=== PATIENT | male | born 1980 | race Caucasian/White ===

== ENCOUNTER 2017-09-28 21:24 | Emergency (ER) | payer SELFPAY ==
--- NOTE | 2017-09-28 22:57 | ER ---
Nurse's Notes [facility] Name: Charles Eden Age: 37 yrs Sex: Male : 1980 Arrival Date: 09/28/2017 Time: 21:27 Bed 3 Private MD: Diagnosis: on arrival. S/P Hanging Presentation: 09/28 21:23 Presenting complaint: EMS states: that pt and were arguing and that pt was found fc in the front yard hanging from tree. Pt was cut down by family per PD. CPR started by PD at 2044. Upon EMS arrival at 2045 pt was Asystole. Transition of care: patient was not received from another setting of care. Onset of symptoms was September 28, 2017 at 20:45. Risk Assessment: Do you want to hurt yourself or someone else? Other: pt was found hanging. Initial Sepsis Screen: Does the patient meet any 2 criteria? No. Patient's initial sepsis screen is negative. Does the patient have a suspected source of infection? No. Patient's initial sepsis screen is negative. Care prior to arrival: Oral intubation, CPR via thumper performed by EMS and is still in progress Placed on backboard. Medication(s) given: EPI x 5, NaBicarb x 2 IV initiated. I/O to left lower leg ETT 7.5. 21:23 Method Of Arrival: EMS: [facility] 21:23 Acuity: SHOLA 1 21:23 Mechanism of Injury: Hanging by unknown for approximately 10 minutes. Hanging details: fc pt found hanging in tree in the front yard by family. Cut down prior to EMS arrival. Trauma event details: Injury occurred in the [facility], Injury occurred: at home. Injury occurred: September 28, 2017. Trauma Activation: Alert Physician: ED Physician; Name: Ant; Notified At: 21:20; Arrived At: 21:23 Physician: General Surgeon; Name: ; Notified At: 21:20; Arrived At: Physician: Radiology; Name: Regi Sainz; Notified At: 21:20; Arrived At: 21:23 Physician: Respiratory; Name: Francis; Notified At: 21:20; Arrived At: 21:23 Physician: Danette; Name: ; Notified At: 21:20; Arrived At: Historical: - Allergies: 21:56 Unable to obtain; fc - Home Meds: 21:56 Unable to obtain [Active]; fc - PMHx: 21:56 Unable to obtain; fc - PSHx: 21:56 Unable to obtain; fc - Immunization history:: Last tetanus immunization: unknown. - Social history:: Smoking status: unknown. - Ebola Screening: : Unable to complete screening because patient is unresponsive, patient is intubated. Screenin:23 Abuse screen: Denies threats or abuse. Nutritional screening: No deficits noted. fc Tuberculosis screening: No symptoms or risk factors identified. Assessment: 21:45 General: Appears unresponsive, ligature delgado to neck, pt blue in color upon arrival to [facility] ER. pt with IO placed via EMS to . 22:04 Pain: Unable to use pain scale. Patient is unresponsive. Neuro: Level of Consciousness ak1 is unresponsive, Pupils are fixed, dilated. Cardiovascular: Rhythm is asystole. Respiratory: Airway pt intubated by EMS Respiratory effort is pt bagged by EMS. no spontaneous respirations. Sputum is pt with blood in mouth and in ET tube visible. RT suctioned when pt arrived to ER3. EENT: Ear canal w/ bleeding noted from right ear. Derm: Skin is mottled, Skin temperature is warm molding to patients face, neck, chest, bilateral arms, back and down left leg. pt defecated on himself KEY PUNCH OPERATOR. Musculoskeletal:. 23:10 Reassessment: [facility] transmission worker at bedside and asked that the tele monitor ak1 and fluids. . 23:12 Reassessment: [facility] contacted at [phone] [phone]. ak1 09/29 00:32 Reassessment: pt picked up by [facility] to be taken to medical stenographer per ak1 Judge Butler. Vital Signs: 09/28 21:23 Pulse 0; Resp 0; Temp 99.1; Weight 127.01 kg (R); Height 6 ft. 0 in. (182.88 cm) (R); fc 21:23 Body Mass Index 37.97 (127.01 kg, 182.88 cm) fc 21:23 pt unresponsive and CPR in progress fc [place] Coma Score: 21:23 Eye Response: none(1). Verbal Response: none(1). Motor Response: none(1). Total: 3. fc Trauma Score (Adult): 21:23 Eye Response: none(0); Verbal Response: none(0); Motor Response: none(0); Systolic BP: fc None(0); Respiratory Rate: None(0); Geeta Score: 3; Trauma Score: 0 ED Course: 21:23 Arm band placed on Patient placed in an exam room, on a stretcher, on oxygen, on fc telemetry monitor, on pulse oximetry. 21:23 Patient has correct armband on for positive identification. school lunch monitor on. Pulse fc ox on. NIBP on. 21:27 Patient arrived in ED. ak1 21:34 Ang Cain MD is Attending Physician. pkl 21:55 Triage completed. fc 22:04 deputy probation officer at the bedside. ak1 22:04 compressions done by ER team. Maintain EMS IV. IO to left lower leg place by EMS KEY PUNCH OPERATOR.. ak1 22:55 Ang Cain MD is Pronouncing Provider. pkl 22:58 No Charles, JENNIFER is Primary Nurse. ak1 Administered Medications: No medications were administered Point of Care Testing: Blood Glucose: 21: Blood Glucose: 278 mg/dL; fc Ranges: Outcome: 09/29 00:35 Patient left the ED. ak1 Signatures: Ang Cain MD MD pkl Chretien, Felicia, RN RN No Charles RN RN ak Corrections: (The following items were deleted from the chart) 09/28 21:55 21:33 Presenting complaint: fc fc
--- NOTE | 2017-09-28 22:57 | EDPHYS ---
Physician Documentation [facility] Name: Charles Eden Age: 37 yrs Sex: Male : 1980 Arrival Date: 09/28/2017 Time: 21:27 Bed 3 Private MD: ED Physician Ang Cain HPI: 09/28 22:43 This 37 yrs old Male presents to ER via EMS with complaints of CPR, Trauma pkl Complaint. 22:43 Preceding the arrest, the patient Patient found unresponsive in the front yard hanging pkl from tree. The arrest occurred at home. Pre-hospital course: Bystanders at the scene performed CPR. [facility] started CPR at scene. Down time unknown. Patient found cyanotic neck upwards. Pupils fixed and dilated. No vital signs at scene and on arrival to ER.. Patient apparently had argument with earlier.. Historical: - Allergies: 21:56 Unable to obtain; fc - Home Meds: 21:56 Unable to obtain [Active]; fc - PMHx: 21:56 Unable to obtain; fc - PSHx: 21:56 Unable to obtain; fc - Immunization history:: Last tetanus immunization: unknown. - Social history:: Smoking status: unknown. - Ebola Screening: : Unable to complete screening because patient is unresponsive, patient is intubated. ROS: 22:43 Unable to obtain ROS due to comatose state. pkl Exam: 22:43 ENT: Nares patent. No nasal discharge, no septal abnormalities noted. Tympanic pkl membranes are normal and external auditory canals are clear. Oropharynx with no redness, swelling, or masses, exudates, or evidence of obstruction, uvula midline. Mucous membranes moist. 22:43 Head/face: Noted is Cyanosis from neck upwards. . 22:43 Eyes: Pupils: are fixed and dilated. 22:43 Neck: External neck: Ligature delgado noted. 22:43 Chest/axilla: Exam negative for acute changes. 22:43 Cardiovascular: Rate: Asystole, Pulses: No pulses noted. 22:43 Respiratory: No respirations noted. 22:43 Abdomen/GI: Exam negative for acute changes. 22:43 Back: Exam negative for acute changes. 22:43 Musculoskeletal/extremity: Exam is negative for acute changes. 22:43 Neuro: Comatose. Vital Signs: 21:23 Pulse 0; Resp 0; Temp 99.1; Weight 127.01 kg (R); Height 6 ft. 0 in. (182.88 cm) (R); fc 21:23 Body Mass Index 37.97 (127.01 kg, 182.88 cm) fc 21:23 pt unresponsive and CPR in progress fc [place] Coma Score: 21:23 Eye Response: none(1). Verbal Response: none(1). Motor Response: none(1). Total: 3. fc Trauma Score (Adult): 21:23 Eye Response: none(0); Verbal Response: none(0); Motor Response: none(0); Systolic BP: fc None(0); Respiratory Rate: None(0); [place] Score: 3; Trauma Score: 0 MDM: 21:34 Patient medically screened. pkl 22:43 Data reviewed: vital signs, nurses notes. ED course: Patient pronounced at 5. pkl 09/28 21:57 Order name: glucometer results - FOR PT WITH NO ID fc Administered Medications: No medications were administered Point of Care Testing: Blood Glucose: 21:23 Blood Glucose: 278 mg/dL; Ranges: Critical Glucose Levels:Adult <50 mg/dl or >400 mg/dl <40 mg/dl or >180 mg/dl Disposition: 22:43 . pk Disposition: Patient pronounced on 09/28/17 21:25 by Ang Cain. Impression: on arrival. S/P Hanging. - Released to Chair Caner. Signatures: Dispatcher [employer] EDMS Ang Cain MD MD pkErma Rubin RN RN No Charles RN RN ak1 Corrections: (The following items were deleted from the chart) 09/29 00:35 09/28 22:56 09/28/2017 22:56 Patient pronounced on 09/28/2017 at 21:25 by Ang Cain. ak1 Impression: on arrival. S/P Hanging. Released to Chair Caner. pkl
== END 2017-09-29 00:35 ==
LOC: ER 21:24
PROC: 5A12012 Performance of Cardiac Output, Single, Manual (ICD-10-PCS; principal; 2017-09-29)
DX: T71.162A Asphyxiation due to hanging, intentional self-harm, initial encounter (principal)
CPT/HCPCS: 36415; 82962; 92950; 99291; 99292